=== PATIENT | female | born 1935 | race Caucasian/White ===

== ENCOUNTER → 2017-11-19 08:30 | Outpatient (CLI) | payer MEDICARE, OTHER ==
[2013-05-31 08:51] VITALS: BMI 28.1
[~2017-11-19 08:30] MED LIST: ALTACE10 MG PO; CALCIUM 600+D T1 TA1 PO; GLUCOPHAGE500 MG PO; MULTI-DAY VITAM1 TAB PO; SYNTHROID25 MCG PO; TEKTURNA150 MG PO; TENORMIN100 MG PO; VITAMIN D2000 UNIT PO; VOLTAREN75 MG PO
== END | disposition home or self-care (01) ==
LOC: D.CT 11-16 13:30
DX: I63.331 Cerebral infarction due to thrombosis of right posterior cerebral artery (principal)

== ENCOUNTER → 2018-01-25 09:19 | Outpatient (CLI) | payer MEDICARE, OTHER ==
[2013-05-31 08:51] VITALS: BMI 28.1
--- NOTE | ~2018-01-25 | EC ---
PATIENT:STACEY DILLON DATE OF SERVICE: 01/25/18 SEX: F MEDICAL RECORD: [id number] DATE OF : 39 [facility] AGE OF PATIENT: 82 ADMISSION DATE: 01/25/18 REFERRING PHYSICIAN: INTERPRETING PHYSICIAN: MIGUEL DELANEY MD ECHOCARDIOGRAM REPORT ECHO CHARGES 4 ECHO COMPLETE Date: 01/25 CLINICAL DIAGNOSIS: HTN/DE/CHEST PAIN/CHF/DYSPNEA/ DIZZINESS ECHOCARDIOGRAPHIC MEASUREMENTS (adult normal given) AC root (d.<3.7cm) 3.6 cm LV Septum d (<1.2 cm> 1.2 cm Valve Excursion 2.0 cm LV Septum (systole) 1.6 cm Left Atria (s.<4.0cm> 4.2 cm LVPW d(<1.2cm) 1.5 cm RV (d.<2.3cm) 3.8 cm LVPW (sytole) 1.7 cm LV diastole(<5.6CM) 5.8 cm MV E-F(>70mm/sec) cm LV systole 4.0 cm LVOT Diameter 1.9 cm MV exc.(>10mm) 1.8 cm Est.ejection fraction (50-75%) % DOPPLER: LVIT cm/sec A 116 cm/sec E 63.0 cm/sec LA cm/sec RVSP 25 mmHg LVOT 93 cm/sec AOP1/2T m/s Asc. Ao 166 cm/sec RVOT 92 cm/sec RA cm/sec PA 106 cm/sec AV Gradient Peak 11.07mmHg AV Mean 5.41 mmHg AV Area 1.5 cm MV Gradient Peak 8.32 mmHg MV Mean 2.16 mmHg MV Area cm COMMENTS: Marker Shipments: Sebastian GOFF Change Control Specialist: Adam Delaney TAPE# PACS Pericardial Effusion N DATE OF SERVICE: 01/25/2018 PROCEDURE: Transthoracic echocardiogram. FINDINGS: 1. The left ventricle is mildly dilated. The patient has left ventricular hypertrophy. Inflow characteristics are consistent with diastolic dysfunction. Overall ejection fraction is low normal at 50% to 55%. 2. There are no obvious regional wall motion abnormalities. 3. The left atrium is mildly dilated. ECHOCARDIOGRAM REPORT [id number] STACEY DILLON 4. The aortic valve is normal. 5. The mitral valve has moderate mitral regurgitation, appears to be centralized. 6. The interatrial septum is normal. 7. The right atrium is normal. 8. The right ventricle is mildly dilated. 9. The tricuspid valve has mild tricuspid regurgitation. RVSP appears to be normal. 10. There is no pericardial effusion. CONCLUSION: The patient has evidence of hypertensive heart disease and mildly dilated cardiomyopathy with low normal ejection fraction with moderate mitral regurgitation. TRANSINT:[id number] Voice Confirmation ID: [id number] DOCUMENT ID: [id number] MIGUEL DELANEY MD at 0719 CC: [id number] DICTATION DATE: 01/31/18 1046 MATE RELIEF: 01/31/18 1303 DEP CLI 01/25/18 [id number] [place] [address]
[~2018-01-25 09:19] MED LIST changes: +ATIVAN0.5 MG PO; +CALAN SR240 MG PO; +GLIPIZIDE10 MG PO; +LIPITOR20 MG PO; +PLAVIX75 MG PO; +SYNTHROID50 MCG PO; +ZOLOFT50 MG PO
[2018-02-22 07:11] VITALS: BMI 28.0
== END | disposition home or self-care (01) ==
LOC: D.ECHO 09:19
DX: I10 Essential (primary) hypertension (principal); E11.9 Type 2 diabetes mellitus without complications; R07.9 Chest pain, unspecified; R06.02 Shortness of breath; I50.9 Heart failure, unspecified; R42 Dizziness and giddiness

== ENCOUNTER → 2018-02-17 06:13 | Outpatient (CLI) | payer MEDICARE, OTHER ==
[~2018-02-17] VITALS: Ht 177.8 cm; Wt 88.6 kg
--- NOTE | ~2018-02-17 | HEMODYNAMI ---
PATIENT:STACEY DILLON MEDICAL RECORD: [id number] : 39 LOCATION:[facility]I ADMISSION DATE: 02/17/18 Generatedon:02/17/201811:33 Patient name: STACEY DILLON Patient #: [id number] SSN: DO B: 1935 Date of study: 02/17/2018 Page: Of Hemodynamic Procedure Report Patient Data Patient Demographics Procedure consent was obtained First Name: STACEY Gender: Female Last Name: WILMA : 1935 Patient #: [id number] Age: 82 year(s) Race: Unknown Additional ID: [id number] Contact details [address]: [address] [place] [address] State: [place] City: [place] Zip code: [address] Past Medical History Allergies Allergen Reaction Date Comments Reported Penicillins 02/17/2018 Other allergy 02/17/2018 levothyroxine, methyl predinisone Admission Admission Data Admission Date: 02/17/2018 Admission Time: 6:13 Lab Results Lab Result Date: 02/17/2018 Lab Result Time: 0:00 Biochemistry Name Units Result Min Max BUN mg/dl 21 --(----)-* 7 18 Creatinine mg/dl 1 --(--*-)-- 0.6 1.3 CBC Name Units Result Min Max Hemoglobin g/dl 12 *-(----)-- 13.5 17.5 Procedure Procedure Types Cath Procedure Diagnostic Procedure LHC LHC w/Coronaries Sedation Charges Moderate Sedation up to 30 minutes PCI Procedure Coronary Stent Coronary Stent Initial Peripheral Cath Diagnostic Procedure Cath Peripheral Renal Arteriogram Procedure Description Procedure Date Procedure Date: 02/17/2018 Procedure Start Time: 8:36 Procedure End Time: 9:14 Procedure Staff Name Function Enriqueta Jean RT Monitor Luis Eduardo Gasca RN Pest Control Service Technician Arash Delaney MD Performing Physician Cuate Delacruz RN Nurse Marilyn Preciado RT Scrub Procedure Data Cath Procedure Fluoroscopy Diagnostic fluoroscopy Total fluoroscopy Time: 6.6 time: 6.6 min min Diagnostic fluoroscopy Total fluoroscopy dose: 984 dose: 984 mGy mGy Contrast Material Contrast Material Type Amount (ml) Isovue 370 88 Entry Location Entry Primary Successful Side Size Upsize Upsize Entry Closure Succes sful Closure Location (Fr) 1 (Fr) 2 (Fr) Remarks Device Remarks Femoral Right 5 Fr 6 Fr Exoseal artery Short Estimated blood loss: 10 ml Diagnostic catheters Device Type Used For End Catheter Placement MULTIPACK JL 4.0 5Fr Left Coronary catheter Angiography MULTIPACK 3DRC 5Fr Right Coronary catheter Angiography MULTIPACK 3DRC 5Fr Renal catheter arteriography with flush -selective MULTIPACK Pigtail 5 Fr LV Angiography catheter Procedure Complications No complications Procedure Medications Medication Administration Route Dosage 0.9% NaCl I.V. 100 ml/hr Oxygen etCO2 Nasal cannula 2 l/min Heparin Flush Bag added to field 2 bags (1000units/500ml NS) Lidocaine 2% added to field 20 Versed I.V. 1 mg Fentanyl I.V. 25 mcg Versed I.V. 1 mg Heparin Bolus I.V. 7000 units Hemodynamics Rest HGB: 12 (g/dl) Heart Rate: 52 (bpm) Pressure Samples Time Site Value (mmHg) Purpose Heart Use Rate(bpm) 8:47 LV 175/-5,17 EDP 56 8:48 LV 150/16,25 Pullback 56 8:48 AO 160/73(110) Pullback 56 Gradients Valve Time Site 1 Site 2 Mean SEP/DFP Peak To Heart Use (mmHg) (sec/min) Peak Rate (mmHg) (bpm) Aortic 8:48 LV AO 0 14 0 56 150/16,25 160/73(110) Calculations Valve P-P Mean Valve Index Valve Source Name Gradient Area Flow (cm2) Aortic 0 0 0 0 Snapshots Pre Cath Intra NCS Post Cath Vital Signs Time Heart Resp SPO2 etCO2 NIBP (mmHg) Rhythm Pain Sedation Rate (ipm) (%) (mmHg) Status Level (bpm) 8:27:45 56 29 98 35.3 169/80(139) NSR 0 (11) 10(A) , No pain 8:32:38 56 17 97 18 168/82(155) NSR 0 (11) 10(A) , No pain 8:37:27 51 16 97 39.1 141/72(115) NSR 0 (11) 10(A) , No pain 8:42:17 52 14 97 36.8 144/71(118) NSR 0 (11) 10(A) , No pain 8:47:37 56 16 96 33.8 162/81(138) NSR 0 (11) 10(A) , No pain 8:52:26 59 14 96 34.5 177/94(154) NSR 0 (11) 10(A) , No pain 8:57:19 61 15 94 33 184/91(152) NSR 0 (11) 10(A) , No pain 9:02:11 62 14 94 33.8 189/86(151) NSR 0 (11) 10(A) , No pain 9:07:06 63 16 93 30 199/96(159) NSR 0 (11) 10(A) , No pain 9:12:05 61 20 94 33 187/96(156) NSR 0 (11) 10(A) , No pain Medications Time Medication Route Dose Verified Delivered Reason Notes Effectiveness by by 8:27:17 0.9% NaCl I.V. 100 Cuate Cuate Per physician ml/hr Jayme Delacruz RN RN 8:27:29 Oxygen etCO2 2 Cuate Cuate Per physician Nasal l/min Jayme Delacruz cannula RN RN 8:27:39 Heparin Flush added 2 Cuate Cuate used for Bag to bags Jayme Delacruz procedure (1000units/500ml RN RN NS) 8:27:49 Lidocaine 2% added 20ml Cuate Cuate for local to vial Jayme Delacruz anesthetic RN RN 8:36:16 Versed I.V. 1 mg Cuate Cuate for sedation Jayme Delacruz RN RN 8:36:28 Fentanyl I.V. 25 Cuate Cuate for sedation mcg Jayme Delacruz RN RN 8:52:52 Versed I.V. 1 mg Cuate Cuate for sedation Jayme Delacruz RN RN 8:53:09 Heparin Bolus I.V. 7,000 Cuate Cuate for units Jayme Delacruz anticoagulation RN fast food shift supervisor Log Time Note 8:03:55 Luis Eduardo Gasca RN sent for patient. Start room use. 8:03:56 Time tracking: Regular hours (M-F 7:00 - 5:00) 8:04:00 Plan of Care:Hemodynamics will remain stable., Cardiac rhythm will remain stable., Comfort level will be maintained., Respiratory function will remain adequate., Patient/ family verbilizes understanding of procedure., Procedure tolerated without complication., Recovers from procedure without complications.. 8:04:02 Signed procedure consent form obtained from patient. 8:04:19 H&P Date Dictated: 02/15/2018 Within 30 days and on chart., H&P Addendum completed by physician on day of procedure. (MUST COMPLETE FOR ALL OUTPATIENTS). 8:06:12 Lab Result : Hemoglobin 12 g/dl 8:06:12 Lab Result : Creatinine 1 mg/dl 8:06:12 Lab Result : BUN 21 mg/dl 8:15:20 Patient received from Pre/Post Procedure Room to CCL 1 Alert and oriented. Tansferred to table in Supine position. 8:15:21 Warm blankets applied, and carmelita hugger turned on for patient comfort. 8:15:22 Correct patient and procedure confirmed by team. 8:15:26 ECG and BP/O2 sat monitors applied to patient. 8:15:27 Full Disclosure recording started 8:26:42 Vital chart was started 8:26:47 Rhythm: sinus bradycardia 8:26:51 Pre-op teaching completed and patient verbalized understanding. 8:26:51 Pre-procedure instructions explained to patient. 8:26:53 Family in patients room. 8:26:55 Patient NPO since Midnight. 8:27:05 Patient allergic to Penicillins 8:27:17 0.9% NaCl 100 ml/hr I.V. was administered by Cuate Delacruz RN; Per physician; 8:27:29 Oxygen 2 l/min etCO2 Nasal cannula was administered by Cuate Delacruz RN; Per physician; 8:27:39 Heparin Flush Bag (1000units/500ml NS) 2 bags added to field was administered by Cuate Delacruz RN; used for procedure; 8:27:44 Patient allergic to Other allergylevothyroxine, methyl predinisone 8:27:49 Is patient on blood thinner?Yes 8:27:49 Lidocaine 2% 20ml vial added to field was administered by Cuate Delacruz RN; for local anesthetic; 8:27:56 ACC The patient was administered the following blood thiners within the last 24 hours: ACCPlavix 8:27:57 Patient diabetic? Yes. 8:27:58 If diabetic: On Metformin? Yes 8:28:00 If on Metformin: Last Dose? 02/15/2018 8:28:03 Previous problem with sedation/anesthesia? No ? 8:28:04 Snore? Yes 8:28:05 Sleep apnea? No 8:28:06 Deviated septum? No 8:28:07 Sticks out tongue? Yes 8:28:07 Opens mouth fully? Yes 8:28:09 Airway obstruction? No ? 8:28:13 Dentures? Yes IN 8:28:16 Pre procedure: right dorsailis pedis pulse 2+ Normal; easily identifiable; not easily obliterated 8:28:18 Modified Alberto's test Ulnar > 7 seconds. 8:28:20 Patient pain scale 0/10 ?. 8:28:29 IV patent on arrival in left forearm with 0.9% NaCl at [facility]. 8:28:33 Lab results completed and on chart. 8:28:36 Right groin area was prepped with chlora-prep and draped in sterile fashion 8:28:37 Alarms reviewed by R. N. 8:28:38 Sharps counted by scrub and verified by R.N. 8:29:52 Final Timeout: patient, procedure, and site verified with staff and physician. All members of the team are in agreement. 8:29:53 Right groin site verified by team. 8:29:56 Physical assessment completed. ASA score P 2 - A patient with mild systemic disease as per Arash Delaney MD. 8:29:58 Sedation plan: IV Moderate Sedation Medication:Versed, Fentanyl 8:33:33 Use device set Femoral Dx 8:33:34 Bag Decanter () opened to sterile field. 8:33:34 ACIST Syringe (94466) opened to sterile field. 8:33:35 Medline Cath Pack ([id number]) opened to sterile field. 8:33:36 DIAGNOSTIC WIRE .035 260cm J wire (932767) opened to sterile field. 8:33:37 ACIST Manifold (59515) opened to sterile field. 8:33:37 ACIST Hand Control (56002) opened to sterile field. 8:33:38 Tegaderm 4 x 4 (1626W) opened to sterile field. 8:33:38 DIAGNOSTIC Multipack 5Fr catheter set ([id number]) opened to sterile field. 8:33:40 SHEATH Prelude 5Fr 0.035 (YIC-2A-98-035) opened to sterile field. 8:33:42 MICROPUNCTURE 4FR Respectance (N98836) opened to sterile field. 8:33:55 Zero performed for pressure channel P1 8:35:59 Procedure started. 8:36:03 Local anesthetic to right femoral artery with Lidocaine 2% by Arash Delaney MD.INITIAL ACCESS ONLY 8:36:16 Versed 1 mg I.V. was administered by Cuate Delacruz RN; for sedation; 8:36:28 Fentanyl 25 mcg I.V. was administered by Cuate Delacruz RN; for sedation; 8:36:34 Baseline sample Acquired. 8:37:42 Access obtained with 4Fr micropunture. 8:38:45 A 5 Fr sheath was inserted into the Right Femoral artery 8:38:57 A MULTIPACK JL 4.0 5Fr catheter was advanced over the wire and used for Left Coronary Angiography. 8:41:07 Catheter removed. 8:42:07 A MULTIPACK 3DRC 5Fr catheter was advanced over the wire and used for Right Coronary Angiography. 8:44:44 A MULTIPACK 3DRC 5Fr catheter was advanced over the wire and used for Renal arteriography with flush -selective. 8:45:10 Catheter removed. 8:45:24 A MULTIPACK Pigtail 5 Fr catheter was advanced over the wire and used for LV Angiography. 8:47:34 LV gram done using MARCANO 8:47:38 Injector settings: Ml/sec: 12, Volume: 8, 8:47:39 LV hemodynamics recorded. 8:49:21 Catheter removed. 8:50:32 Use device set NORRED PCI 8:50:34 SHEATH Prelude 6Fr 0.035 (RWG-2L-97-035) opened to sterile field. 8:50:45 INFLATOR Merit BasixCompak (GE0577) opened to sterile field. 8:50:46 COPILOT Valve Control (8655613) opened to sterile field. 8:50:50 BMW 190cm Greenup 2 J wire ([id number]) opened to sterile field. 8:52:21 Sheath upsized to a 6 Fr Short. 8:52:52 Versed 1 mg I.V. was administered by Cuate Lorigan RN; for sedation; 8:53:09 Heparin Bolus 7,000 units I.V. was administered by Cuate Delacruz RN; for anticoagulation; 8:53:32 6 Fr XBLAD 4.0 guide catheter was inserted over the wire 8:54:20 BMW wire advanced. 8:58:42 Inflate balloon Inflation number: 1 A EUPHORA 2.5 x 20 Balloon ([id number]) was prepped and advanced across the Prox LAD, then inflated to 8 FERNIE for 0:15 (min:sec). 8:59:19 Inflation number: 2 The EUPHORA 2.5 x 20 Balloon ([id number]) was reinflated across the Prox LAD, to 14 FERNIE for 0:14 (min:sec). 9:00:38 Balloon removed over the wire. 9:02:50 Place stent Inflation Number: 3 A JOCE RX 2.5 x 22 stent ([id number]) was prepped and advanced across the Prox LAD. The stent was deployed at 14 FERNIE for 0:13 (min:sec). 9:03:16 Inflation number: 4 The stent balloon was then re-inflated across the Prox LAD to 14 FERNIE for 0:11 (min:sec). 9:03:36 Stent catheter was removed intact over wire. 9:06:04 Place stent Inflation Number: 5 A JOCE RX 2.5 x 26 stent ([id number]) was prepped and advanced across the Prox LAD. The stent was deployed at 18 FERNIE for 0:20 (min:sec). 9:06:36 Stent catheter was removed intact over wire. 9:07:36 Guide catheter removed. 9:07:36 Wire removed. 9:07:49 Sheath removed intact; hemostasis achieved with Exoseal to the Right Femoral artery. 9:07:54 EXOSEAL 6Fr (EX600) opened to sterile field. 9:08:12 Procedure ended.(Physican Out) 9:08:25 Fluoroscopy time 06.60 minutes. 9:08:34 Fluoroscopy dose: 984 mGy 9:08:34 Flurop Dose total: 984 9:08:39 Contrast amount:Isovue 370 88ml. 9:08:41 Sharps counted by scrub and verified by R.N. 9:08:42 Insertion/operative site no bleeding no hematoma. 9:08:44 Post-op/insertion site Right Femoral artery dressed using a 4 x 4 and Tegaderm. 9:08:47 Post right femoral artery:stable, clean and dry 9:08:48 Post Procedure Pulses reassessed and unchanged 9:08:51 Post-procedure physical assessment completed. ASA score P 2 - A patient with mild systemic disease as per Arash Delaney MD. 9:08:53 Post procedure rhythm: unchanged. 9:08:55 Estimated blood loss: 10 ml 9:08:57 Patient needs reinforcement of post procedure teaching. 9:08:57 Post procedure instruction explained to patient.Patient verbalizes understanding. 9:09:14 Procedure type changed to Cath procedure, Diagnostic procedure, LHC, LHC w/Coronaries, Sedation Charges, Moderate Sedation up to 30 minutes, PCI procedure, Coronary Stent, Coronary Stent Initial, Peripheral Cath Diagnostic Procedure, Cath Peripheral, Renal Arteriogram 9:09:36 Procedure Complication : No complications 9:09:38 See physician's report for complete and final results. 9:10:00 GUIDE 6FR XBLAD 4.0 catheter ([id number]) opened to sterile field. 9:12:08 Procedure and supply charges have been captured, reviewed, submitted and are correct. 9:13:04 Post right femoral artery:hematoma 9:13:09 FEMSTOP Gold (U08700) opened to sterile field. 9:13:15 Femstop placed over the right femoral artery at 160 mmHg. Hemostasis achieved. 9:14:04 Vital chart was stopped 9:14:11 Report given to Pre/Post Procedure Room. 9:14:14 Patient transfered to Pre/Post Procedure Room with Stretcher. 9:14:24 Full Disclosure recording stopped 9:14:24 Procedure ended. 9:14:28 End room use (Document Last) Intervention Summary Intervention Notes Time ActionType Lesion and Equipment Used Action# Pressure Duration Attributes 8:58:42 Inflate Prox LAD EUPHORA 2.5 x 1 8 00:15 balloon 20 Balloon ([id number]) 8:59:19 Reinflate Prox LAD EUPHORA 2.5 x 2 14 00:14 balloon 20 Balloon ([id number]) 9:02:50 Place stent Prox LAD JOCE RX 2.5 x 3 14 00:13 22 stent ([id number]) 9:03:16 Reinflate Prox LAD JOCE RX 2.5 x 4 14 00:11 stent 22 stent balloon ([id number]) 9:06:04 Place stent Prox LAD JOCE RX 2.5 x 5 18 00:20 26 stent ([id number]) Device Usage Item Name Manufacture Quantity Catalog Number Hospital Part Current Minimal Lot# / Charge Number Stock Stock Serial# Code ACIST Syringe Acist 1 78964 220186 776236 [id number] 20 (26263) Medical Systems Inc Bag Decanter Microtek 1 379228 60644 690170 5 () Medical Inc. Medline Cath Cardinal 1 [id number] 471284 82435 735360 5 Pack Health ([id number]) DIAGNOSTIC WIRE St Alex 1 686278 248729 158863 815364 30 .035 260cm J wire (502139) ACIST Hand Acist 1 42446 239108 854288 396577 5 Control (04038) Medical Systems Inc ACIST Manifold Acist 1 90734 126269 610206 888035 5 (02597) Medical Systems Inc DIAGNOSTIC Cardinal 1 [id number] 723117 14343 979978 30 Multipack 5Fr Health catheter set (SK4952) Tegaderm 4 x 4 3M 1 1626W 857984 315640 711710 5 (1626W) SHEATH Prelude Merit 1 TJE-1F-75-035 324064 370857 770125 5 5Fr 0.035 Medical (SRI-3E-37-035) MICROPUNCTURE Cook Medical 1 P85041 104721 153821 961639 5 4FR Cook ([id number]) MULTIPACK JL Cardinal 1 910336 5 4.0 5Fr Health catheter MULTIPACK 3DRC Cardinal 1 530913 5 5Fr catheter Health MULTIPACK Cardinal 1 250545 5 Pigtail 5 Fr Health catheter SHEATH Prelude Merit 1 VTY-0H-07-35 469266 1444247 337758 5 6Fr 0.035 Medical (NYA-9W-88-035) INFLATOR Merit Merit 1 EL1320 228917 777130 212585 15 BasixComlaBoxcar Medical (LF4695) COPILOT Valve Uribe 1 3345690 345670 434478 444294 5 Control Vascular (3968934) BMW 190cm Uribe 1 [id number] 797101 80581 305174 5 Greenup 2 J Vascular wire (3123875G) EUPHORA 2.5 x Medtronic 1 [id number] 512282 659301 730830 5 [id number] 20 Balloon ([id number]) JOCE RX 2.5 x Medtronic 1 [id number] 024435 4989097 809788 5 [id number] 22 stent ([id number]) JOCE RX 2.5 x Medtronic 1 [id number] 997917 4088728 207557 5 [id number] 26 stent ([id number]) EXOSEAL 6Fr Cardinal 1 EX600 936104 418714 938281 10 (EX600) Health GUIDE 6FR XBLAD Cardinal 1 [id number] 392563 060755 988211 3 4.0 catheter Health ([id number]) FEMSTOP Gold St Alex 1 P26061 929887 357583 882772 5 ([id number]) Signature Audit [place] Stage Time Signature Unsigned Intra-Procedure 02/17/2018 Enriqueta Robison Counts 9:14:41 AM Counts RT(R) RT(R) 02/17/2018 11:31:49 AM Intra-Procedure 02/17/2018 Enriqueta 11:33:31 AM Counts RT(R) Signatures Monitor : Enriqueta Signature : Counts RT Date : Time : [address] [place] [address]
--- NOTE | ~2018-02-17 | OP ---
PATIENT NAME: STACEY DILLON MEDICAL RECORD: [id number] :39 LOCATION:D.CAT ADMISSION DATE: SURGEON: MIGUEL ALONZO MD DATE OF OPERATION: 02/17/2018 PROCEDURES: 1. Left heart catheterization, LV gram, coronary angiogram, PTCA of the LAD times 2. 2. Intra-arterial stenting with a drug-eluting stent times 2 of the LAD. 3. Selective bilateral renal angiography. PROCEDURE IN DETAIL: The patient was brought to cardiac catheterization lab in stable condition. Both groins were sterilely prepped and draped. The patient had a 6-Guamanian sheath placed in right common femoral artery in retrograde fashion using modified Seldinger technique. The patient then had selective angiography of the left coronary artery, the right coronary artery, and the left ventricular cavity respectively. We then withdrew the catheter and selectively engaged the left renal artery and the right renal artery and angiography was performed. We then placed the pigtail catheter in the left ventricular cavity for complete left heart catheterization. We then exchanged the diagnostic catheters for interventional guiding catheter. We intubated the left main coronary artery. We were able to get distal wire positioned into the distal LAD distribution. We then advanced a 2.5 x 20 balloon into the zpb-gz-pcrzyo segment of the LAD and then withdrew that balloon into the proximal segment of the left anterior descending. We then placed a stent a 2.5 x 22 stent into the distal area and taken to 14 atmospheres. We then withdrew and placed another stent a 2.5 x 26 into the proximal area and taken to rated burst pressure of 18 atmospheres. We then showed that we had reduced the area of stenosis from 90% respectively to 0% residual stenosis. No edge dissection or distal embolization was visualized. The procedure was terminated successfully. FINDINGS: 1. Left main has distal calcified plaquing with approximately 30% to 40% stenosis. 2. The LAD is shown to have diffuse heavily calcified stenosis in the proximal and distal segments of both approximately 80% to 90%. 3. The circumflex is nondominant and it terminates into a terminal obtuse marginal branch throughout the hodjptzt-af-uml portion. There is diffuse atherosclerotic changes with the greatest area of stenosis in the transition from the ostium to the terminal obtuse marginal branch of 90%. The first obtuse marginal branch also has an ostial 80% stenosis. 4. The right coronary artery is dominant in distribution, has mild ectasia and stenosis with a 50% proximal area of stenosis. 5. 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 6. The right renal artery has shown to have a proximal 40% to 50% stenosis, not hemodynamically significant. 7. Left ventricular ejection fraction is 45% to 50% with mild global hypokinesis. EDP was mildly elevated at 18 mmHg. There was no significant mitral regurgitation. There is no gradient across the aortic valve. INTERVENTION: Segmental 90% stenosis in the proximal to the distal area of the LAD, treated with angioplasty and stenting. Post-stenting 0% residual stenosis. OPERATIVE REPORT [id number] STACEY DILLON IMPRESSION: Multivessel coronary artery disease. After full discussion with the patient, we decided to go forward with angioplasty and stenting as our treatment option of choice. We had successful angioplasty and stenting of the LAD stenoses. Given dye constraints and her age and comfort level in the table, we decided to stage the intervention with the next intervention in the circumflex to happen in 1 week. Procedure was successful. The left ventricular ejection fraction is mildly reduced with global hypokinesis. RECOMMENDATIONS: Continue aggressive secondary risk factor modification, antihypertensive therapy. LDL goal of less than 70 mg/dL and dual-antiplatelet therapy in the form of Plavix and aspirin for 1 year. TRANSINT:[id number] Voice Confirmation ID: [id number] DOCUMENT ID: [id number] MIGUEL ALONZO MD at 1119 CC: [id number] DICTATION DATE: 02/17/18918 RESIDENCY COORDINATOR: 02/17/18 1017 [facility] [address] [id number]
[2018-02-17 06:44] VITALS: BP 140/62; Ht 177.8 cm; Wt 88.6 kg
[2018-02-17 06:54] LABS: BASOPHILS 0.2 % (0-2); HEMATOCRIT 36.8 % (36.0-48.0); IMMATURE GRANULOCYTES 0.2 % (0-5); LYMPHOCYTES 30.7 % (15-50); MCH 30.3 pg (26.0-34.0); MCHC 32.6 g/dL (31.0-37.0); MCV 92.9 fL (80.0-100.0); MONOCYTES 9.2 % (2-11); NEUTROPHILS 55.7 % (40-80); PLATELET COUNT 137 10x3/uL (130-400); RBC 3.96 10x6/uL (4.00-5.40); RDW 13.6 % (11.5-14.5); WBC 5.5 10x3/uL (4.8-10.8)
[2018-02-17 07:05] LABS: ANION GAP 9.9 mmol/L (8-16); CALCIUM 8.8 mg/dL (8.5-10.1); CARBON DIOXIDE 29.2 mmol/L (21.0-32.0); POTASSIUM - SERUM 4.1 mmol/L (3.5-5.1)
== END | disposition home or self-care (01) ==
LOC: D.CATH 06:13
PROVIDERS: Internal Medicine Cardiovascular Disease
DX: I25.119 Atherosclerotic heart disease of native coronary artery with unspecified angina pectoris (principal); I77.3 Arterial fibromuscular dysplasia; I70.1 Atherosclerosis of renal artery; Z01.812 Encounter for preprocedural laboratory examination
CPT/HCPCS: 93458; 36252; C9600

== ENCOUNTER 2018-02-22 06:41 | Outpatient (CLI) | payer MEDICARE, OTHER ==
[~2018-02-22] VITALS: Ht 177.8 cm; Wt 88.6 kg
--- NOTE | ~2018-02-22 | OP ---
PATIENT NAME: STACEY DILLON MEDICAL RECORD: [id number] :37 LOCATION:D.[facility] ADMISSION DATE: SURGEON: MIGUEL ALONZO MD DATE OF OPERATION: 02/22/2018 PROCEDURE: PTCA and stenting of the circumflex and obtuse marginal branch. DESCRIPTION OF PROCEDURE: The patient was brought to cardiac catheterization lab in stable condition. Both groins were sterilely prepped and draped. The patient had a 6-Turkish sheath placed in the left common femoral artery using modified Seldinger technique in a retrograde fashion. We were then able to advance a guiding catheter into the left main. We intubated the left main. We were able to get distal wire positioned into the circ distribution with a 0.01 Turkish wire. We were then able to advance a 2.0 balloon into the circ and the OM. We were then able to deploy that balloon at nominal pressures. We were then able to deliver a 2.25 x 30 stent into the area and taken to nominal pressures. We then had a small distal edge dissection. We took a 2.0 x 15 and deployed and we were able to eliminate the dissection. We had good flow characteristics in the 80% to 90% stenosis in the circumflex OM vessel, was reduced to 0% residual stenosis status post angioplasty and stenting times 2. IMPRESSION: Severe 2-vessel coronary artery disease. Successful angioplasty and stenting. RECOMMENDATIONS: Dual-antiplatelet therapy, aggressive secondary risk factor modification. TRANSINT:[id number] Voice Confirmation ID: [id number] DOCUMENT ID: [id number] MIGUEL ALONZO MD at 0735 CC: [id number] DICTATION DATE: 02/22/18 1005 TELEVISION SERVICE ENGINEER: 02/22/18 1211 DEP CLI 02/22/18 [place] [address]
--- NOTE | ~2018-02-22 | HEMODYNAMI ---
PATIENT:STACEY DILLON MEDICAL RECORD: [id number] : 37 LOCATION:[facility] ADMISSION DATE: 02/22/18 Generatedon:02/22/201810:08 Patient name: STACEY DILLON Patient #: [id number] SSN: DO B: 1935 Date of study: 02/22/2018 Page: Of Hemodynamic Procedure Report Patient Data Patient Demographics Procedure consent was obtained First Name: STACEY Gender: Female Last Name: WILMA : 1935 Patient #: [id number] Age: 82 year(s) Race: Unknown Additional ID: [id number] Contact details [address]: [address] [place] [address] State: [place] City: [place] Zip code: [address] Past Medical History Allergies Allergen Reaction Date Comments Reported Penicillins 02/17/2018 Other allergy 02/17/2018 levothyroxine, methyl predinisone Admission Admission Data Admission Date: 02/22/2018 Admission Time: 6:41 Lab Results Lab Result Date: 02/17/2018 Lab Result Time: 0:00 Biochemistry Name Units Result Min Max BUN mg/dl 21 --(----)-* 7 18 Creatinine mg/dl 1 --(--*-)-- 0.6 1.3 CBC Name Units Result Min Max Hemoglobin g/dl 12 *-(----)-- 13.5 17.5 Procedure Procedure Types Cath Procedure PCI Procedure Coronary Stent Coronary Stent Initial Procedure Description Procedure Date Procedure Date: 02/22/2018 Procedure Start Time: 9:32 Procedure End Time: 9:55 Procedure Staff Name Function Enriqueta Jean RT Scrub Ruy Gutierrez RT Monitor Maurice Marquis RN Passenger Service Supervisor Arash Delaney MD Performing Physician uCate Delacruz RN Nurse Procedure Data Cath Procedure Fluoroscopy Diagnostic fluoroscopy Total fluoroscopy Time: 5.9 time: 5.9 min min Diagnostic fluoroscopy Total fluoroscopy dose: 627 dose: 627 mGy mGy Contrast Material Contrast Material Type Amount (ml) Isovue 300 35 Entry Location Entry Primary Successful Side Size Upsize Upsize Entry Closure Succes sful Closure Location (Fr) 1 (Fr) 2 (Fr) Remarks Device Remarks Femoral Left 6 Fr Exoseal artery Short Estimated blood loss: 10 ml Procedure Complications No complications Procedure Medications Medication Administration Route Dosage 0.9% NaCl I.V. 100 ml/hr Oxygen etCO2 Nasal cannula 2 l/min Heparin Flush Bag added to field 2 bags (1000units/500ml NS) Lidocaine 2% added to field 20 Versed I.V. 2 mg Fentanyl I.V. 50 mcg Heparin Bolus I.V. 7000 units Nitroglycerin SL S.L. 0.4 mg Clonidine P.O. 0.1 mg Hemodynamics Rest HGB: 12 (g/dl) Heart Rate: 61 (bpm) Pressure Samples Time Site Value (mmHg) Purpose Heart Use Rate(bpm) 9:37 AO 178/75(114) Snapshot 57 Snapshots Pre Cath Intra NCS Post Cath Vital Signs Time Heart Resp SPO2 etCO2 NIBP (mmHg) Rhythm Pain Sedation Rate (ipm) (%) (mmHg) Status Level (bpm) 9:00:24 61 16 93 0 198/103(155) NSR 0 (11) 10(A) , No pain 9:04:54 61 16 95 26.2 182/102(156) NSR 0 (11) 10(A) , No pain 9:09:28 58 12 94 17.2 177/88(159) NSR 0 (11) 10(A) , No pain 9:13:59 57 14 96 27.7 177/87(156) NSR 0 (11) 10(A) , No pain 9:18:35 55 19 95 20.2 172/82(145) NSR 0 (11) 10(A) , No pain 9:24:15 55 12 97 29.2 178/85(151) NSR 0 (11) 10(A) , No pain 9:28:47 57 12 96 27.7 183/99(156) NSR 0 (11) 10(A) , No pain 9:34:27 57 13 94 26.2 182/88(163) NSR 0 (11) 10(A) , No pain 9:39:55 56 12 95 17.9 182/88(151) NSR 0 (11) 10(A) , No pain 9:44:30 56 12 95 27.7 189/90(151) NSR 0 (11) 10(A) , No pain 9:50:01 57 19 94 23.2 189/90(158) NSR 0 (11) 10(A) , No pain 9:54:36 57 15 96 32.9 194/101(159) NSR 0 (11) 10(A) , No pain Medications Time Medication Route Dose Verified Delivered Reason Notes Effectiveness by by 8:56:27 0.9% NaCl I.V. 100 Cuate Cuate Per physician ml/hr Jayme Delacruz RN RN 8:56:43 Oxygen etCO2 2 Cuate Cuate Per physician Nasal l/min Jayme Delacruz cannula RN RN 8:56:55 Heparin Flush added 2 Cuate Cuate used for Bag to bags Lorneftali Delacruz procedure (1000units/500ml field RN RN NS) 8:57:05 Lidocaine 2% added 20ml Cuate Cuate for local to vial Jayme Delacruz anesthetic field RN RN 9:30:44 Versed I.V. 2 mg Cuate Cuate for sedation Lorigan Jayme RN RN 9:30:53 Fentanyl I.V. 50 Cuate Cuate for sedation mcg Jayme Delacruz RN RN 9:38:04 Heparin Bolus I.V. 7,000 Cuate Cuate for units Lorigan Jayme anticoagulation RN RN 10:07:18 Nitroglycerin SL S.L. 0.4 Cuate Cuate for mg Lorigan Lorigan hypertension RN RN 10:07:29 Clonidine P.O. 0.1 Cuate Cuate for mg Lorigan Lorigan hypertension RN welding equipment repairer Log Time Note 8:30:50 Maurice Marquis RN sent for patient. Start room use. 8:42:32 Time tracking: Regular hours (M-F 7:00 - 5:00) 8:42:36 Plan of Care:Hemodynamics will remain stable., Cardiac rhythm will remain stable., Comfort level will be maintained., Respiratory function will remain adequate., Patient/ family verbilizes understanding of procedure., Procedure tolerated without complication., Recovers from procedure without complications.. 8:49:08 Warm blankets applied, and carmelita hugger turned on for patient comfort. 8:49:08 Patient received from Pre/Post Procedure Room to [facility] 2 Alert and oriented. Tansferred to table in Supine position. 8:49:09 Correct patient and procedure confirmed by team. 8:49:10 ECG and BP/O2 sat monitors applied to patient. 8:49:10 Signed procedure consent form obtained from patient. 8:49:11 Full Disclosure recording started 8:56:27 0.9% NaCl 100 ml/hr I.V. was administered by Cuate Delacruz RN; Per physician; 8:56:43 Oxygen 2 l/min etCO2 Nasal cannula was administered by Cuate Delacruz RN; Per physician; 8:56:55 Heparin Flush Bag (1000units/500ml NS) 2 bags added to field was administered by Cuate Delacruz RN; used for procedure; 8:57:05 Lidocaine 2% 20ml vial added to field was administered by Cuate Delacruz RN; for local anesthetic; 8:58:05 Vital chart was started 8:58:06 Baseline sample Acquired. 8:58:16 Rhythm: sinus rhythm 8:58:28 H&P Date Dictated: 02/22/2018 New H&P dictated by physician.. 8:58:29 Pre-op teaching completed and patient verbalized understanding. 8:58:29 Pre-procedure instructions explained to patient. 8:58:32 Family in waiting room. 8:58:33 Patient NPO since Midnight. 8:58:35 Is the patient allergic to Iodine/contrast media? No. 8:58:37 Is patient on blood thinner?Yes 8:58:39 ACC The patient was administered the following blood thiners within the last 24 hours: ACCPlavix 8:58:40 Patient diabetic? Yes. 8:58:41 If diabetic: On Metformin? Yes 8:58:43 If on Metformin: Last Dose? 02/20/2018 8:58:45 Previous problem with sedation/anesthesia? No ? 8:58:46 Snore? Yes 8:58:47 Sleep apnea? No 8:58:48 Deviated septum? No 8:58:49 Opens mouth fully? Yes 8:58:50 Sticks out tongue? Yes 8:58:55 Airway obstruction? No ? 8:59:19 Dentures? Yes IN 8:59:23 Pre procedure: left dorsailis pedis pulse 1+ Palpable, but thready & weak; easily obliterated 9:00:29 Going left groin due to right groin tenderness and bruising from prior procedure on 02/17/18. 9:00:33 Patient pain scale 0/10 ?. 9:00:43 IV patent on arrival in left forearm with 0.9% NaCl at O. 9:00:45 Lab results completed and on chart. 9:00:48 Left groin area was prepped with chlora-prep and draped in sterile fashion 9:00:49 Alarms reviewed by R. N. 9:00:50 Sharps counted by scrub and verified by R.N. 9:01:36 Use device set Femoral Dx 9:01:38 Use device set NORRED PCI 9:01:42 Tegaderm 4 x 4 (1626W) opened to sterile field. 9:01:45 ACIST Hand Control (28582) opened to sterile field. 9:01:45 ACIST Manifold (92365) opened to sterile field. 9:01:48 Medline Cath Pack ([id number]) opened to sterile field. 9:01:50 Bag Decanter (2002S) opened to sterile field. 9:01:50 ACIST Syringe (72870) opened to sterile field. 9:01:57 DIAGNOSTIC WIRE .035 260cm J wire (311364) opened to sterile field. 9:02:03 MICROPUNCTURE 4FR Cook (P02981) opened to sterile field. 9:02:05 INFLATOR Merit BasixCompak (BI3333) opened to sterile field. 9:02:06 COPILOT Valve Control (3121936) opened to sterile field. 9:02:08 BMW 190cm Lincoln 2 J wire ([id number]) opened to sterile field. 9:02:11 SHEATH Prelude 6Fr 0.035 (NCF-9H-57-035) opened to sterile field. 9:15:03 Zero performed for pressure channel P1 9:29:47 Final Timeout: patient, procedure, and site verified with staff and physician. All members of the team are in agreement. 9:29:47 --------ALL STOP TIME OUT------ 9:29:49 Left groin site verified by team. 9:29:52 Physical assessment completed. ASA score P 2 - A patient with mild systemic disease as per Arash Delaney MD. 9:29:55 Sedation plan: IV Moderate Sedation Medication:Versed, Fentanyl 9:30:44 Versed 2 mg I.V. was administered by Cuate Delacruz RN; for sedation; 9:30:53 Fentanyl 50 mcg I.V. was administered by Cuate Delacruz RN; for sedation; 9:31:40 Procedure started. 9:32:42 Local anesthetic to left femerol artery with Lidocaine 2% by Arash Delaney MD.INITIAL ACCESS ONLY 9:33:48 A 6 Fr Short sheath was inserted into the Left Femoral artery 9:34:19 GUIDE 6FR XBLAD 4.0 catheter ([id number]) opened to sterile field. 9:36:07 6 Fr XBLAD 4 guide catheter was inserted over the wire 9:36:43 BMW wire advanced. 9:38:04 Heparin Bolus 7,000 units I.V. was administered by Cuate Delacruz RN; for anticoagulation; 9:38:16 Wire advanced across lesion. 9:40:41 Inflate balloon Inflation number: 1 A EUPHORA 2.0 x 15 Balloon ([id number]) was prepped and advanced across the Mid CX, then inflated to 10 FERNIE for 0:10 (min:sec). 9:41:11 Inflation number: 2 The EUPHORA 2.0 x 15 Balloon ([id number]) was reinflated across the Mid CX, to 14 FERNIE for 0:10 (min:sec). 9:44:12 Balloon removed over the wire. 9:45:22 Place stent Inflation Number: 3 A JOCE RX 2.0 x 30 stent ([id number]) was prepped and advanced across the Mid CX. The stent was deployed at 20 FERNIE for 0:10 (min:sec). 9:46:29 Stent catheter was removed intact over wire. 9:47:44 Place stent Inflation Number: 4 A JOCE RX 2.0 x 15 stent ([id number]) was prepped and advanced across the Mid CX. The stent was deployed at 12 FERNIE for 0:10 (min:sec). 9:48:12 Stent catheter was removed intact over wire. 9:50:14 Guide catheter removed. 9:50:14 Wire removed. 9:50:18 EXOSEAL 6Fr (EX600) opened to sterile field. 9:50:29 Sheath removed intact; hemostasis achieved with Exoseal to the Left Femoral artery. 9:50:36 Procedure ended.(Physican Out) 9:51:03 Fluoroscopy time 05.90 minutes. 9:51:38 Fluoroscopy dose: 627 mGy 9:51:38 Flurop Dose total: 627 9:51:42 Contrast amount:Isovue 300 35ml. 9:51:44 Sharps counted by scrub and verified by R.N. 9:51:45 Insertion/operative site no bleeding no hematoma. 9:51:48 Post-op/insertion site Left Femoral artery dressed using a 4 x 4 and Tegaderm. 9:51:49 Post Procedure Pulses reassessed and unchanged 9:51:52 Post-procedure physical assessment completed. ASA score P 2 - A patient with mild systemic disease as per Arash Delaney MD. 9:51:55 Post procedure rhythm: unchanged. 9:51:58 Estimated blood loss: 10 ml 9:51:59 Post procedure instruction explained to patient.Patient verbalizes understanding. 9:52:00 Patient needs reinforcement of post procedure teaching. 9:52:07 Procedure Complication : No complications 9:54:51 Procedure and supply charges have been captured, reviewed, submitted and are correct. 9:54:58 See physician's report for complete and final results. 9:54:58 Vital chart was stopped 9:55:05 Report given to Pre/Post Procedure Room. 9:55:10 Patient transfered to Pre/Post Procedure Room with Stretcher. 9:55:13 Full Disclosure recording stopped 9:55:13 Procedure ended. 9:55:19 End room use (Document Last) 10:07:18 Nitroglycerin SL 0.4 mg S.L. was administered by Cuate Delacruz RN; for hypertension; 10:07:29 Clonidine 0.1 mg P.O. was administered by Cuate Delacruz RN; for hypertension; Intervention Summary Intervention Notes Time ActionType Lesion and Equipment Used Action# Pressure Duration Attributes 9:40:41 Inflate Mid CX EUPHORA 2.0 x 1 10 00:10 balloon 15 Balloon ([id number]) 9:41:11 Reinflate Mid CX EUPHORA 2.0 x 2 14 00:10 balloon 15 Balloon ([id number]) 9:45:22 Place stent Mid CX JOCE RX 2.0 x 3 20 00:10 30 stent ([id number]) 9:47:44 Place stent Mid CX JOCE RX 2.0 x 4 12 00:10 15 stent ([id number]) Device Usage Item Name Manufacture Quantity Catalog Hospital Part Current M inimal Lot# / Number Charge Number Stock Stock Serial# Code Tegaderm 4 x 4 3M 1 1626W [id number] [id number] 5 (1626W) ACIST Manifold Acist 1 51977 670988 555875 398458 5 (86633) Medical Systems Inc ACIST Hand Acist 1 37898 288607 500438 938509 5 Control (63531) [employer] Inc Medline Cath Cardinal 1 [id number] 327851 88570 571602 5 Pack Health ([id number]) ACIST Syringe Acist 1 01812 174507 375848 987316 2 0 (00512) Medical Systems Inc Bag Decanter Microtek 1 2002S 112029 80023 294469 5 (2001S) Medical Inc. DIAGNOSTIC WIRE St Alex 1 352044 401203 544429 706873 3 0 .035 260cm J wire (305062) MICROPUNCTURE Cook Medical 1 E14629 770917 281677 933489 5 4FR Cook (V48641) INFLATOR Merit Merit 1 KM3833 285203 935667 748752 1 5 BasixCompak Medical (SU1760) COPILOT Valve Uribe 1 7709082 057163 997227 146357 5 Control Vascular (6867717) BMW 190cm Uribe 1 [id number] 451085 54682 086296 5 Lincoln 2 J Vascular wire ([id number]) SHEATH Prelude Merit 1 [id number]-8S-89-35 497410 0742687 675529 5 6Fr 0.035 Medical (FWG-2L-09-035) GUIDE 6FR XBLAD Cardinal 1 [id number] 823602 353489 051789 3 4.0 catheter Cardiovascular [employer] ([id number]) EUPHORA 2.0 x Medtronic 1 [id number] 029900 098550 626154 5 [id number] 15 Balloon ([id number]) JOCE RX 2.0 x Medtronic 1 [id number] 096432 128395 398209 5 [id number] 30 stent ([id number]) JOCE RX 2.0 x Medtronic 1 [id number] 695932 2154598 112244 5 [id number] 15 stent ([id number]) EXOSEAL 6Fr Cardinal 1 EX600 397944 041714 471561 1 0 (EX600) Health Signature Audit Sturgeon Stage Time Signature Unsigned Intra-Procedure 02/22/2018 Ruy Gutierrez RT(R) 9:56:28 AM RT(R) 02/22/2018 10:06:40 AM Intra-Procedure 02/22/2018 Ruy Gutierrez 10:08:20 AM RT(R) Signatures Monitor : Ruy Gutierrez RT Signature : Date : Time : [id number] [place] [address]
[2018-02-22 07:11] VITALS: BP 156/70; Ht 177.8 cm; Wt 88.6 kg
[2018-02-22 07:17] LABS: BASOPHILS 0.3 % (0-2); EOSINOPHILS 3.4 % (0-7); HEMATOCRIT 35.8 % (36.0-48.0); HEMOGLOBIN 11.7 g/dL (12-16); IMMATURE GRANULOCYTES 0.3 % (0-5); LYMPHOCYTES 28.6 % (15-50); MCH 30.4 pg (26.0-34.0); MCHC 32.7 g/dL (31.0-37.0); MEAN PLATELET VOLUME 11.2 fL (7.4-10.4); MONOCYTES 11.5 % (2-11); NEUTROPHILS 55.9 % (40-80); PLATELET COUNT 164 10x3/uL (130-400); RBC 3.85 10x6/uL (4.00-5.40); RDW 13.7 % (11.5-14.5); WBC 6.1 10x3/uL (4.8-10.8)
[2018-02-22 07:27] LABS: ANION GAP 7.7 mmol/L (8-16); CALCIUM 9.2 mg/dL (8.5-10.1); CARBON DIOXIDE 29.5 mmol/L (21.0-32.0); CREATININE - SERUM 0.9 mg/dL (0.6-1.3); POTASSIUM - SERUM 4.2 mmol/L (3.5-5.1)
== END 2018-02-22 14:25 | disposition home or self-care (01) ==
LOC: D.CATH 06:41
PROVIDERS: Internal Medicine Cardiovascular Disease
DX: I25.10 Atherosclerotic heart disease of native coronary artery without angina pectoris (principal)